=== PATIENT | male | born 1955 ===

== ENCOUNTER 2018-05-29 08:54 | Inpatient (IN) | payer OTHER ==
[~2018-05-29] VITALS: Ht 172.7 cm; Wt 90.7 kg
[2018-05-29] MEDS ORDERED: AMBIEN10 MG PO (10:16)
[2018-05-29] MEDS ORDERED: ZANTAC300 MG (10:17)
[2018-05-29] MEDS ORDERED: OMNICEF300 MG PO (10:18)
[2018-05-29] MEDS ORDERED: XANAX1 MG PO (10:19)
[2018-05-29] MEDS ORDERED: INDOCIN25 MG PO (10:20)
[2018-05-29 11:34] VITALS: BP 127/74; BMI 30.4
[2018-05-29 12:05] LABS: BASOPHILS 0.1 % (0-2); EOSINOPHILS 0.9 % (0-7); HEMATOCRIT 44.1 % (42.0-54.0); HEMOGLOBIN 15.3 g/dL (13.5-17.5); LYMPHOCYTES 20.7 % (15-50); MCH 33.2 pg (26.0-34.0); MCHC 34.7 g/dL (31.0-37.0); MCV 95.7 fL (80.0-100.0); MEAN PLATELET VOLUME 10.5 fL (7.4-10.4); MONOCYTES 9.3 % (2-11); PLATELET COUNT 171 10x3/uL (130-400); RBC 4.61 10x6/uL (4.20-6.10); RDW 12.4 % (11.5-14.5); WBC 6.8 10x3/uL (4.8-10.8)
[2018-05-29 12:35] LABS: ANION GAP 10.9 mmol/L (8-16); BILIRUBIN - TOTAL 0.68 mg/dL (0.2-1.3); CALCIUM 9.1 mg/dL (8.5-10.1); CARBON DIOXIDE 28.8 mmol/L (21.0-32.0); CHOL - HDL RATIO 4.4 ratio (2.3-4.9); CREATININE - SERUM 1.1 mg/dL (0.6-1.3); POTASSIUM - SERUM 3.7 mmol/L (3.5-5.1); PROTEIN - SERUM 7.6 g/dL (6.4-8.2); THYROID STIMULATING HORMONE 1.34 uIU/mL (0.36-3.74)
[2018-05-29 19:31] VITALS: BP 114/81
[2018-05-30 06:16] LABS: VITAMIN D 25 HYDROXY 22.7 ng/mL (30.0-100.0)
[2018-05-30 07:38] LABS: RAPID PLASMA REAGIN Non Reactive (Non Reactive)
[2018-05-30 08:22] LABS: FOLATE (FOLIC ACID) - SERUM 17.1 ng/mL (>3.0)
[2018-05-30 11:38] VITALS: BP 122/84
[2018-05-30 13:07] VITALS: Ht 172.7 cm; Wt 90.7 kg
[2018-05-30 14:26] LABS: APPEARANCE CLEAR (CLEAR); BILIRUBIN NEGATIVE (NEGATIVE); COLOR YELLOW (YELLOW); GLUCOSE NEGATIVE (NEGATIVE); KETONE NEGATIVE (NEGATIVE); NITRITE NEGATIVE (NEGATIVE); PROTEIN NEGATIVE (NEGATIVE); SPECIFIC GRAVITY 1.015 (1.005-1.020); UROBILINOGEN NORMAL (NORMAL); WHITE CELLS - URINE RARE /hpf (0-5)
[2018-05-30 14:27] LABS: BACTERIA FEW /hpf (NONE SEEN); EPITHELIAL CELLS 0-5 /hpf (0-5); MUCUS <1+ /lpf (NONE SEEN); RED CELLS - URINE 0-5 /hpf (0-5)
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
[2018-05-30 20:48] VITALS: BP 135/81
[2018-05-31 10:01] VITALS: BP 143/82
--- NOTE | 2018-05-31 14:42 | PN ---
PATIENT:HOLLY GU MEDICAL RECORD: [id number] LOCATION:KERI Uribe113 ADMISSION DATE: 05/29/18 PROGRESS NOTE DATE OF SERVICE: 05/30/2018 SUBJECTIVE: The patient's case was discussed with staff. He has no new complaint. OBJECTIVE: The patient yesterday told me that he did not drink, but when I went and reviewed the chart, it seems that he has told the nursing staff at the time of admission that he drinks 18-pack of beer a week. When asked if he drinks today, he says he drinks an 18-pack of beer a week. He also goes on to say that means that some days he does not drink at all and that other days, he will drink a 6 pack or two. 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 He had some pretty significant confusion last night. He actually required some p.r.n. Haldol and Ativan because of some confused and agitated behavior. He has no recollection of this. He cannot remember where his room is and he has written the room number in large black letters on the knee of his pants. When asked what his room is, he looks and reads the number and in less than a minute later when I asked him what room he is in and not to down at his pants leg, he cannot remember it. He also today is telling me that the year is 2018 that the month is June. Clearly, this man has evidence of a dementing illness that is not readily observed. I think he has been drinking more than we realized and I have concerns about him going home alone. At this point, he does have 2 sons who live here in town, I am not sure how involved they are willing to be with him, but I am going to discuss this with the treatment team. I am also going to observe him for DT prophylaxis and will make sure that he has both thiamine and folate are ordered. His vital signs so far not have indicated any issues, but I certainly think they bear a watching. TRANSINT:[id number] Voice Confirmation ID: [id number] DOCUMENT ID: [id number] KAITLIN POWELL MD at 1442 CC: [id number] DICTATION DATE: 05/30/18 1643 ANIMAL SCIENTIST: 05/30/18 2250 ADM IN [facility] [address] [place] [id number]
[2018-05-31 19:56] VITALS: BP 140/80
[2018-06-01 08:00] VITALS: BP 111/77
--- NOTE | 2018-06-01 15:20 | PN ---
PATIENT:HOLLY GU MEDICAL RECORD: [id number] LOCATION:KERI Uribe113 ADMISSION DATE: 05/29/18 PROGRESS NOTE DATE OF SERVICE: 05/31/2018 SUBJECTIVE: The patient's case was discussed with staff. He has no new complaint. OBJECTIVE: The patient denies intent to harm himself or others. He tolerates his medicines well. Eye contact is fair. He has significant short-term memory impairment. ASSESSMENT: No change in diagnoses. PLAN: The patient is going to be started on Aricept at a dose of 5 mg at bedtime. Aricept is being used to treat his underlying dementia. TRANSINT:[id number] Voice Confirmation ID: [id number] DOCUMENT ID: [id number] KAITLIN POWELL MD at 1520 CC: [id number] DICTATION DATE: 05/31/18 1528 SENIOR SOFTWARE ENGINEERING MANAGER: 05/31/18 2109 ADM IN [facility] [address] [place] [address]
[2018-06-01 20:54] VITALS: BP 123/77
[2018-06-02 09:17] VITALS: BP 123/83
--- NOTE | 2018-06-02 10:04 | PN ---
PATIENT:HOLLY GU MEDICAL RECORD: [id number] LOCATION:Jojo[facility]LENE[facility]fea Uribe113 ADMISSION DATE: 05/29/18 PROGRESS NOTE DATE OF SERVICE: 06/01/2018 SUBJECTIVE: The patient's case was discussed with staff. He has no new complaint. OBJECTIVE: The patient is in good behavioral control with limited insight about his condition. He generally tolerates his medicines well. ASSESSMENT: No change in diagnoses. PLAN: Brief supportive and educational interventions were made. Long-term prognosis is guarded. TRANSINT:[id number] Voice Confirmation ID: [id number] DOCUMENT ID: [id number] KAITLIN POWELL MD at 1004 CC: [id number] DICTATION DATE: 06/01/18 1542 MOTHER REPAIRER: 06/01/18 1640 ADM IN [place] [id number] [place] [id number]
[2018-06-02 20:00] VITALS: BP 124/82
[2018-06-02 21:32] VITALS: BP 124/82
[2018-06-03 08:59] VITALS: BP 121/83
--- NOTE | 2018-06-03 13:57 | PN ---
PATIENT:HOLLY GU MEDICAL RECORD: [id number] LOCATION:KERI PricePatricia113 ADMISSION DATE: 05/29/18 PROGRESS NOTE DATE OF SERVICE: 06/02/2018 SUBJECTIVE: The patient's case was discussed with staff. He has no new complaint. OBJECTIVE: The patient denies intent to harm himself or others. He tolerates his medicines well. ASSESSMENT: No change in diagnoses. PLAN: Brief supportive and educational interventions were made. Long-term prognosis is guarded. TRANSINT:[id number] Voice Confirmation ID: [id number] DOCUMENT ID: [id number] KAITLIN POWELL MD at 1357 CC: [id number] DICTATION DATE: 06/02/18 1109 CABLE DRILLER: 06/02/18 1228 ADM IN [place] [address] [place] [id number]
[2018-06-03 18:17] VITALS: BP 125/82
[2018-06-04 08:04] VITALS: BP 116/73
--- NOTE | 2018-06-04 16:20 | PN ---
PATIENT:HOLLY GU MEDICAL RECORD: [id number] LOCATION:KERI Uribe113 ADMISSION DATE: 05/29/18 PROGRESS NOTE DATE OF SERVICE: 06/03/2018 SUBJECTIVE: The patient's case was discussed with staff. He has no new complaint. OBJECTIVE: The patient is minimizing the confusion he has had. He is not aggressive or out of control. He has limited insight about his condition and no evidence of alcohol withdrawal. ASSESSMENT: No change in diagnoses. PLAN: The patient is very much wanting to be discharged. I am not happy about the situation at home with the lack of supervision, but I am in a situation where, as long as the guns have been removed, I think all I can do is release him and make a report to adult protective services. TRANSINT:[id number] Voice Confirmation ID: [id number] DOCUMENT ID: [id number] KAITLIN POWELL MD at 1620 CC: [id number] DICTATION DATE: 06/03/18 1416 HEAD ANIMAL KEEPER: 06/03/18 1624 ADM IN [facility] [address] [place] [address]
[2018-06-04] MEDS ORDERED: Aricept PO (17:04)
[2018-06-04 20:40] VITALS: BP 110/71
[2018-06-05 08:00] VITALS: BP 129/92
--- NOTE | 2018-06-05 15:55 | PN ---
PATIENT:HOLLY GU MEDICAL RECORD: [id number] LOCATION:KERI Uribe113 ADMISSION DATE: 05/29/18 PROGRESS NOTE DATE OF SERVICE: 06/04/2018 SUBJECTIVE: The patient's case was discussed with staff. He has no new complaint. OBJECTIVE: The patient denies intent to harm himself or others. He is tolerating his medicines well. Eye contact is poor. ASSESSMENT: No change in diagnoses. PLAN: Current medicines and therapies have been reviewed and will be maintained. Long-term prognosis is guarded. Brief supportive and educational interventions were made. I am going to increase his Aricept slightly; and based on the fact that the guns have been removed from the house, he has a close friend who is going to watch him and assist him, I am going to let him go home tomorrow. I am not comfortable with this decision, but adult protective services will not take custody of him while he is here in a safe environment. We are going to ask for a home check and hopefully they will take custody of him since I do not think the amount of supervision his friend is going to provide will be adequate. He cannot be committed under current statute since he is demented and that is his only mental health diagnosis and the [place] statue specifically includes mental health commitments for reasons of dementia. This is unfortunate and Mr. Gu wants to go home. He has almost no insight about his level of impairment and does not think he is having any significant trouble. His friend, Fernando, thinks differently and is going to help. Neither of the patient's sons, who both live locally, have any interest in assisting him. TRANSINT:[id number] Voice Confirmation ID: [id number] DOCUMENT ID: [id number] KAITLIN POWELL MD at 1555 CC: [id number] DICTATION DATE: 06/04/18 170 EPIC MANAGER: 06/04/18 1804 DIS IN 06/05/18 [place] [id number] [place] [address]
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
== END 2018-06-05 11:00 | disposition home or self-care (01) | DRG 57 ==
LOC: D.PSYCH 08:54
PROVIDERS: ADMIT Psychiatry & Neurology Psychiatry
DX: G30.1 Alzheimer's disease with late onset (principal); F02.81 Dementia in other diseases classified elsewhere, unspecified severity, with behavioral disturbance; F05 Delirium due to known physiological condition; M10.9 Gout, unspecified; F41.9 Anxiety disorder, unspecified; F15.90 Other stimulant use, unspecified, uncomplicated; Z72.89 Other problems related to lifestyle; E55.9 Vitamin D deficiency, unspecified

== ENCOUNTER 2019-12-12 20:13 | Inpatient (IN) | payer MEDICARE ==
[~2019-12-12 20:13] MED LIST: AMBIEN10 MG PO; Aricept PO; INDOCIN25 MG PO; OMNICEF300 MG PO; XANAX1 MG PO; ZANTAC300 MG
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
[2019-12-12 22:25] VITALS: BP 127/76
[2019-12-12 22:46] LABS: BILIRUBIN NEGATIVE (NEGATIVE); GLUCOSE NEGATIVE (NEGATIVE); KETONE NEGATIVE (NEGATIVE); NITRITE NEGATIVE (NEGATIVE); RED CELLS - URINE 0-5 /hpf (0-5); UROBILINOGEN NORMAL (NORMAL); WHITE CELLS - URINE NSEEN /hpf (NEGATIVE)
[2019-12-12 22:47] LABS: BACTERIA FEW /hpf (NEGATIVE); EPITHELIAL CELLS NSEEN /hpf (0-5)
[2019-12-13 06:48] LABS: BASOPHILS 0.4 % (0-2); EOSINOPHILS 4.3 % (0-7); HEMATOCRIT 44.4 % (42.0-54.0); HEMOGLOBIN 14.4 g/dL (13.5-17.5); IMMATURE GRANULOCYTES 0.2 % (0-5); LYMPHOCYTES 25.5 % (15-50); MCH 31.2 pg (26.0-34.0); MCHC 32.4 g/dL (31.0-37.0); MCV 96.3 fL (80.0-100.0); MEAN PLATELET VOLUME 10.3 fL (7.4-10.4); MONOCYTES 7.9 % (2-11); NEUTROPHILS 61.7 % (40-80); RBC 4.61 10x6/uL (4.20-6.10); RDW 12.1 % (11.5-14.5); WBC 4.7 10x3/uL (4.8-10.8)
[2019-12-13 06:51] LABS: PLATELET COUNT 248 10x3/uL (130-400)
[2019-12-13 07:25] LABS: ALBUMIN 3.7 g/dL (3.4-5.0); ALKALINE PHOSPHATASE 69 U/L (30-120); ALT (SGPT) 56 U/L (10-68); BILIRUBIN - TOTAL 0.67 mg/dL (0.2-1.3); CALC OSMOLALITY 282 mosm/kg (275-300); CALCIUM 9.4 mg/dL (8.5-10.1); CARBON DIOXIDE 30.9 mmol/L (21.0-32.0); CHLORIDE - SERUM 106 mmol/L (98-107); CHOL - HDL RATIO 6.7 ratio (2.3-4.9); CHOLESTEROL, TOTAL 201 mg/dL (0-200); CREATININE - SERUM 0.9 mg/dL (0.6-1.3); GLUCOSE 91 mg/dL (74-106); HDL CHOLESTEROL 30 mg/dL (32-96); LDL CHOLESTEROL 148 mg/dL (0-100); LDL-HDL RATIO 4.9 ratio (1.5-3.5); POTASSIUM - SERUM 4.1 mmol/L (3.5-5.1); PROTEIN - SERUM 7.5 g/dL (6.4-8.2); SODIUM 142 mmol/L (136-145); THYROID STIMULATING HORMONE 1.92 uIU/mL (0.36-3.74); TRIGLYCERIDE 117 mg/dL (30-200); UREA NITROGEN 13 mg/dL (7-18); eGFR NON AFRICAN AMERICAN 90 mL/min (90-120)
--- NOTE | 2019-12-13 07:25 | NUR ---
Spoke to the patient and he said he knows he is somewhere here in [place], he knows he is in the hospital, he says he is here to get his thinking straight, he says he knows he was not thinking right and he is realizing a lot of stuff that is more in the real world now. He is pleasant and calm, but he does have some anxiety. He ambulates independently. Provide prescribed meds. Monitor his behavior. Continue POC.
[2019-12-13 09:22] VITALS: BP 111/77
--- NOTE | 2019-12-13 12:31 | NUR ---
The patient is bizarre in behavior. He is showing some anxiety. His eyes get big and he has asked to walk around. He is watchful. He is not completely sure why he is here.
[2019-12-13 14:47] VITALS: Wt 87.7 kg
--- NOTE | 2019-12-13 17:44 | NUR ---
PT WANTED TO GET SOME CARDS OUT OF HIS WALLET. HE WANTED HIS SENIOR CONNECTIONS CARD TO CALL [facility]. NURSE WROTE NUMBER DOWN SO THAT MONDAY THE NUMBER COULD BE CALLED.
[2019-12-13 20:10] VITALS: BP 111/72
--- NOTE | 2019-12-14 00:49 | NUR ---
B) Patient is alert and oriented to self, pleasnt and cooperative with staff, very confused and unaware of situation, I) Administered scheduled medications as ordered, monitored for safety R) Mediation compliant, follows instructions, P) Continue plan of care.
[2019-12-14 06:10] LABS: RAPID PLASMA REAGIN Non Reactive (Non Reactive)
[2019-12-14 08:27] VITALS: BP 102/76
--- NOTE | 2019-12-14 10:34 | NUR ---
The patient is confused and paranoid. He doesn't know why he is here. He doesn't know where he is located. He is watchful and forgetful. He has asked to go up to his room to go to bed. Explained to him that it is morning and it is not bedtime. He has not been aggressive, denies SI, and HI. Provide prescribed meds. The patient is compliant with meds. He ambulates independently. Continue POC.
--- NOTE | 2019-12-14 19:06 | PN ---
PATIENT:HOLLY GU MEDICAL RECORD: [id number] LOCATION:KERI Uribe112 ADMISSION DATE: 12/12/19 PROGRESS NOTE DATE OF SERVICE: 12/14/2019 SUBJECTIVE: The patient's case was discussed with staff. He has no new complaint. OBJECTIVE: The patient is delusional. He has been paranoid with the staff, believing that they are trying to poison him. ASSESSMENT: Dementia. PLAN: The is going to be treated with a low dose of Risperdal for his psychotic symptoms. He will be monitored for clinical changes associated with its use. His long-term prognosis is guarded. TRANSINT:[id number] Voice Confirmation ID: [id number] DOCUMENT ID: [id number] KAITLIN POWELL MD at 1906 CC: [id number] DICTATION DATE: 12/14/19 1238 RN BARIATRIC: 12/14/19 1304 ADM IN [facility] [address] [place] [address]
[2019-12-14 20:00] VITALS: BP 120/84
--- NOTE | 2019-12-14 20:41 | NUR ---
B.) PT IS ALERT AND ORIENTED TO SELF, PLACE AND TIME. HE HAS POOR INSIGHT INTO HIS SITUATION AT TIMES. HE IS CALM AND COOPERATIVE WITH STAFF. HE IS ABLE TO AMBULATE WITHOUT ASSIST. HE IS ABLE TO VOICE NEEDS AND WANTS. I.) PROVIDED PM MEDICATIONS PRESCRIBED. REDIRECT NEEDED. R.) COMPLIANT WITH ALL MEDICATIONS. EASY TO REDIRECT. P.) WILL CONTINUE TO MONITOR.
[2019-12-15 10:50] VITALS: BP 110/61
--- NOTE | 2019-12-15 12:54 | NUR ---
The patient is confused, he is watchful, he has poor insight into his situation. He repeats the same question as he forgets in a few minutes. He has not shown any aggression, no SI, or HI. He has no idea how he got here or why he is here. He asked "Where are my shoes?" He showed me his flip flops and the soles are mostly worn off. Explained to him that he only came in with the flip flops. He said "Oh" Offered him some nonskid socks so that he can wear them instead of the worn flip flops. First he accepted them then he tried to give them back he was confused. He said "Well, I can't wear them with my flip flops because of the toes." Explained to him that he could take the flip flops off and wear the socks because they may be more comfortable. He continues to wear his flip flops. Provide prescribed meds. The patient is compliant with meds. Continue POC.
--- NOTE | 2019-12-15 20:18 | NUR ---
RECEIVED IN DAYROOM. SITTING IN A CHAIR WITH PEERS AT HIS SIDE. CALM AND COOPERATIVE WITH CARE AND ASSESSMENT. NO SIGNS OF HALLUCINATIONS. REDIRECT AND REORIENT NEEDED. CONTINUES TO SIT CALMLY IN DAYROOM. CONTINUE PLAN OF CARE.
[2019-12-15 20:37] VITALS: BP 130/85
[2019-12-16 09:21] VITALS: BP 122/76
--- NOTE | 2019-12-16 10:30 | NUR ---
PT STATED REMORSE FOR HIS BEHAVIOR THAT GOT HIM ADMITTED TO THE UNIT. SOME CONFUSION NOTED BUT PT WAS EASILY REDIRECTION. MED COMPLIANT. NO HALLUCINATIONS NOTED. DENIES SI. BENITO CONTINUE TO MONITOR AND CONTINUE WITH PLAN OF CARE.
--- NOTE | 2019-12-16 12:16 | NUR ---
Nutrition Follow-up: Diet: Regular PO intake: 100% x all meals Last BM: 12/14/19. Wt: 189.6# (12/15/19); Admit Wt: 189# (12/13/19) Meds and labs reviewed. Recommend continue current diet. RD following.
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
--- NOTE | 2019-12-16 12:27 | PN ---
PATIENT:HOLLY GU MEDICAL RECORD: [id number] LOCATION:[facility] ADMISSION DATE: 12/12/19 PROGRESS NOTE DATE OF SERVICE: 12/15/2019 SUBJECTIVE: The patient's case was discussed with staff. He has no new complaint. OBJECTIVE: The patient is in good behavioral control with poor insight about his condition. He tolerates his medicines well. ASSESSMENT: Dementia. PLAN: The patient is less paranoid today. I think on the whole, he is better. The main problem at this point is discharge. He is wanting to go back to his house, this is inappropriate in my view. TRANSINT:[id number] Voice Confirmation ID: [id number] DOCUMENT ID: [id number] KAITLIN POWELL MD at 1227 CC: [id number] DICTATION DATE: 12/15/19 1405 FORM BUILDER: 12/16/19 0150 ADM IN [facility] [address] [place] [address]
[2019-12-16 20:05] VITALS: BP 133/92
--- NOTE | 2019-12-16 20:07 | NUR ---
PATIENT BECOMING INCREASINGLY AGITATED ABOUT GOING HOME, PACING AND REQUESTING HIS DOCTOR. HALDOL 2 MG PO GIVEN FOR ANXIETY.
--- NOTE | 2019-12-16 21:00 | NUR ---
MEDICATION HAS CALMED PATIENT SOME AT THIS TIME.
--- NOTE | 2019-12-17 00:05 | NUR ---
PATIENT WALKED OUT OF ROOM TO NURSES DESK AND REQUESTED SOMETHING TO HELP HIM SLEEP. HALDOL 2 MG PO AND ATIVAN 0.5 MG PO GIVEN PER REQUEST FOR ANXIETY.
--- NOTE | 2019-12-17 02:38 | NUR ---
B) Patient is alert and oriented to person, restless at times, pacing and wanting to go home, I) Administered scheduled medications as ordered, PRN Haldol 2 mg PO given with HS meds for anxiety, followe d by PRN Haldol 2 mg PO qand Ativan 0.5 mg PO given at 1 AM for anxiety due to anxiety and pacing the hallways R) Mediation compliant, patient still not sleeping, P) Continue plan of care.
--- NOTE | 2019-12-17 08:21 | PN ---
PATIENT:HOLLY GU MEDICAL RECORD: [id number] LOCATION:[facility] ADMISSION DATE: 12/12/19 PROGRESS NOTE DATE OF SERVICE: 12/16/2019 SUBJECTIVE: The patient's case was discussed with staff. He has no new complaint. OBJECTIVE: The patient continues to have paranoid and delusional thoughts. He is accusatory towards staff. ASSESSMENT: Dementia. PLAN: I am going to increase the dose of the Risperdal to a 4 mg at bedtime. He will be monitored for clinical changes associated with its effect. His long-term prognosis is guarded. TRANSINT:[id number] Voice Confirmation ID: [id number] DOCUMENT ID: [id number] KAITLIN POWELL MD at 0821 CC: [id number] DICTATION DATE: 12/16/19 1642 EXPERIMENTAL ROCKET SLED MECHANIC: 12/16/19 2333 ADM IN [place] [id number] [place] [id number]
[2019-12-17 09:53] VITALS: BP 105/60
--- NOTE | 2019-12-17 10:01 | NUR ---
REC'D PT IN DAYROOM SOCIALIZING WITH PEERS. CALM AND COOPERATIVE WITH ASSESSMENT. PT CAN BECOME EASILY AGITATED AT TIMES. HARD TO REDIRECT AT TIMES. PRESCRIBED MEDS PROVIDED ORDERED. MED COMPLIANT. REDIRECT AND REORIENT NEEDED. WILL CPOC.
[2019-12-17 20:28] VITALS: BP 111/66
--- NOTE | 2019-12-17 23:01 | NUR ---
B) Patient is alert and oriented to person, very confused and unaware of surroundings, unable to understand instructions at times, I) Administered scheduled medications as ordered, redirected as needed, R) Mediation compliant, misunderstands almost all instructions P) Continue plan of care.
[2019-12-18 09:16] VITALS: BP 94/68
--- NOTE | 2019-12-18 11:13 | NUR ---
REC'D PT IN DAYROOM WITH PEERS. PT IS ATTENDING GROUP AT THIS TIME. CALM AND COOPERATIVE WITH ASSESSMENT WITH CONFUSION NOTED. PRESCRIBED MEDS PROVIDED ORDERED. MED COMPLIANT. REDIRECT AND REORIENT NEEDED. FALL PRECAUTIONS IN PLACE FOR SAFETY. WILL CPOC.
--- NOTE | 2019-12-18 15:58 | PN ---
PATIENT:HOLLY GU MEDICAL RECORD: [id number] LOCATION:[facility] ADMISSION DATE: 12/12/19 PROGRESS NOTE DATE OF SERVICE: 12/17/2019 SUBJECTIVE: The patient's case was discussed with staff. He has no new complaint. OBJECTIVE: The patient was agitated last night and did require some p.r.n. medication. He is partially oriented. He has pretty limited insight about his situation. I am going to go ahead and discontinue his Risperdal and we will start him on a scheduled dose of Geodon for his disruptive behaviors. He cannot live alone. He has no family, and long-term placement seems to be the least restrictive environment available to him. TRANSINT:[id number] Voice Confirmation ID: [id number] DOCUMENT ID: [id number] KAITLIN POWELL MD at 1558 CC: [id number] DICTATION DATE: 12/17/19 1540 ORE SMELTER: 12/18/19 0012 ADM IN [place] [id number] [place] [id number]
--- NOTE | 2019-12-18 16:26 | NUR ---
Nutrition Follow-up: Diet: Regular PO intake: ~97% average x last 9 meals Last BM: 12/14/19. Wt: 189.6# (12/15/19); Admit Wt: 189# (12/13/19) Meds and labs reviewed. Recommend continue current diet. RD following.
[2019-12-18 20:01] VITALS: BP 105/76
--- NOTE | 2019-12-19 00:01 | NUR ---
B) Patient is alert and oriented to person, very confused and unaware of surroundings, I) Administered scheduled medications as ordered, redirected and reoriented as needed, R) Medication compliant, sleeping quietly in bed now, P) Continue plan of care.
[2019-12-19 09:25] VITALS: BP 123/80
--- NOTE | 2019-12-19 10:40 | NUR ---
The patient is awake, but he is bizarre and delusional. He said "Oh, I was with the compound coating machine offbearer yesterday and he took my armband off, I don't know why" then he said "I already had the orange one." I am unsure what he is talking about, but he laughed and said "Ok, whatever." Provide prescribed meds. The patient is compliant with meds, although, he has refused to use his incentive spirometer this am. He believes they are dirty. The patient has poor insight into his situation. Continue POC.
--- NOTE | 2019-12-19 12:01 | PN ---
PATIENT:HOLLY GU MEDICAL RECORD: [id number] LOCATION:[facility] ADMISSION DATE: 12/12/19 PROGRESS NOTE DATE OF SERVICE: 12/18/2019 SUBJECTIVE: The patient's case was discussed with staff. He has no new complaint. OBJECTIVE: The patient is cognitively impaired, but cooperative. He has not made any more delusional statements and he is tolerating his current dose of Geodon well and I will consider reducing the dose if this level of improvement continues. ASSESSMENT: Dementia. PLAN: The patient has no family or support system that can assist him. He needs 82-pcha-z-day supervision. The least restrictive environment is the halfway. I am going to complete the papers for adult protective services and start that process. TRANSINT:[id number] Voice Confirmation ID: [id number] DOCUMENT ID: [id number] KAITLIN POWELL MD at 1201 CC: [id number] DICTATION DATE: 12/18/19 1613 ESTIMATOR AND DRAFTER SUPERVISOR: 12/19/19 0406 ADM IN [place] [id number] [place] [address]
[2019-12-19 21:22] VITALS: BP 94/62
--- NOTE | 2019-12-19 22:32 | NUR ---
B) Patient is alert and oriented to person, patient thinks he has to meet with a boiler plant worker and needs to find his car keys I) Administered scheduled medications as ordered, monitored for safety R) Mediation coompliant, resting quietly now P) Continue plan of care.
--- NOTE | 2019-12-20 08:10 | NUR ---
The patient is calm and pleasant he has poor insight into his situation. He does not know why he is here, he doesn't know place or time, he talks, but he says things that do not make sense. He ambulates independently. He has not shown any aggression today. Provide prescribed meds. Monitor his mood and behavior. Continue POC.
[2019-12-20 09:07] VITALS: BP 103/73
--- NOTE | 2019-12-20 13:20 | PN ---
PATIENT:HOLLY GU MEDICAL RECORD: [id number] LOCATION:[facility] ADMISSION DATE: 12/12/19 PROGRESS NOTE DATE OF SERVICE: 12/19/2019 SUBJECTIVE: The patient's case was discussed with staff. He has no new complaint. OBJECTIVE: The patient is in good behavioral control, poor insight about his situation. He is tolerating his medicines well. ASSESSMENT: Dementia. PLAN: The patient is in need of 70-ypvs-u-day supervision. Long-term prognosis is guarded. TRANSINT:[id number] Voice Confirmation ID: [id number] DOCUMENT ID: [id number] KAITLIN POWELL MD at 1320 CC: [id number] DICTATION DATE: 12/19/19 1619 PSYCHOLOGIST CLINICAL: 12/19/19 [address] [facility] [address] [place] [address]
--- NOTE | 2019-12-20 16:50 | NUR ---
PT IS VERY CONFUSED ABD ANXIOUS. STAFF ATTEMPTED TO REDIRECT PT BEHAVIORS. PT STATED HE WAS ANXIOUS AND NERVOUS. ATIVAN 0.5 MG PO FOR ANXIOUS BEHAVIOR.
--- NOTE | 2019-12-20 20:44 | NUR ---
RECEIVED PATIENT IN DAYROOM, SOCIALIZES WELL WITH OTHERS, CONFUSED, HE LOOKS FOR "HIS ANISA" AT TIMES AND THINKS THAT HIS HOUSE IS GOING TO BE STOLEN FROM HIM. HE IS PLEASANT, COMPLIANT WITH MEDS, MAKES ALL NEEDS KNOWN.
[2019-12-20 21:05] VITALS: BP 133/88
--- NOTE | 2019-12-21 12:44 | NUR ---
IS ORIENTED TO SELF.COMPLIANT WITH STAFF AND MEDS.VERY POOR SHORT TERM MEMORY,WILL ASK THE SAME QUESTIONS OVER AND OVER.DOES NOT REMEMBER HE HAS A ROOM HERE.NO BEHAVIORS OBSERVED.WILL CONTINUE WITH CURRENT PLAN OF CARE,MONITOR FOR CHANGES AND SAFETY.
[2019-12-21 14:20] VITALS: BP 104/68
--- NOTE | 2019-12-22 01:49 | NUR ---
RECEIVED PATIENT IN DINING AREA TALKING WITH TWO OTHER RESIDENTS, HE IS PLEASANT BUT CONFUSED, HE WAS ASKING FOR HIS DIFFERENT SHOES SO HE COULD GO TO WORK IN THE MORNING. EXPLAINED TO HIM THAT HE WAS AT A HOSPITAL AND DID NOT HAVE TO GO TO WORK IN THE MORNING... STILL CONFUSED. WILL MONITOR
[2019-12-22 08:53] VITALS: BP 106/77
--- NOTE | 2019-12-22 16:37 | NUR ---
PT IS SITTING IN DAYROOM WITH PEERS. AWAKE AND ALERT TO PERSON ONLY. CALM AND COOPERATIVE WITH ASSESSMENT. PRESCRIBED MEDS PROVIDED ORDERED. MED COMPLIANT. PT IS VERY CONFUSED AND HAS LITTLE INSIGHT INTO HIS SITUATION AT THIS TIME. REDIRECT AND REORIENT NEEDED. WILL CPOC.
[2019-12-22 19:36] VITALS: BP 122/72
--- NOTE | 2019-12-22 21:12 | NUR ---
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 HE CAN NOT COMPREHEND TO WHY HE IS HERE, COMPLIANT WITH MEDS. WILL FOLLOW POC
[2019-12-23 09:08] VITALS: BP 143/70
--- NOTE | 2019-12-23 17:22 | NUR ---
PT AT DINING ROOM TABLE WITH PEERS. ASSESSMENT COMPLETE. PRESCRIBED MEDS PROVIDED ORDERED. MED COMPLIANT. REDIRECT AND REORIENT NEEDED. WILL CPOC.
--- NOTE | 2019-12-23 19:45 | NUR ---
RECEIVED IN DINING ROOM AREA. SITTING IN A CHAIR WITH PEERS AT HIS SIDE. SOCIAL. CALM AND COOPERATIVE WITH CARE AND ASSESSMENT. NO SIGNS OF HALLUCINATIONS. REDIRECT AND REROEINT NEEDED. CONTINUES TO SIT CALMLY IN DAYROOM. CONTINUE PLAN OF CARE.
[2019-12-23 20:10] VITALS: BP 100/66
--- NOTE | 2019-12-24 08:22 | PN ---
PATIENT:HOLLY GU MEDICAL RECORD: [id number] LOCATION:[facility] ADMISSION DATE: 12/12/19 PROGRESS NOTE DATE OF SERVICE: 12/23/2019 SUBJECTIVE: The patient's case was discussed with staff. He has no new complaint. OBJECTIVE: The patient denies intent to harm himself or others. He is tolerating his medicines well. His long-term prognosis is guarded. I anticipate he can be transitioned out of the hospital soon. The issue is going to be placement and that is going to be contingent upon what the adult protective services office decides to do. It is my recommendation that he needs 11-pztp-y-day supervision. Given the overall circumstances, it looks as though the least restrictive environment is going to be a assisted and again with the overall circumstances, it looks as though he is not going to be willing to go to the assisted unless somebody, a family member or the state take custody of him through guardianship. TRANSINT:[id number] Voice Confirmation ID: [id number] DOCUMENT ID: [id number] KAITLIN POWELL MD at 0822 CC: [id number] DICTATION DATE: 12/23/19 1736 SOFT DRINK POWDER MIXER: 12/24/19 0137 ADM IN [facility] [address] [place] [address]
[2019-12-24 10:12] VITALS: BP 132/84
--- NOTE | 2019-12-24 16:38 | NUR ---
PT SITTING IN CHAIR. PT IS CONFUSED AND ALERT TO SELF ONLY. PT IS ALERT TO SELF ONLY. REDIRECT AND REORIENT NEEDED. PT IS COMPLIANT WITH MEDS, VITALS AND ASSESSMENT. CAN MAKE NEEDS KNOWN. AMBULATES. MODERATE ASSISTANCE WITH ADLS. NO BEHAVIORS NOTED. WILL CONT PLAN OF CARE.
[2019-12-24 19:52] VITALS: BP 118/80
--- NOTE | 2019-12-24 19:58 | NUR ---
RECEIVED IN DAYROOM. SITTING CALMLY IN A CHAIR WITH PEERS AT HIS SIDE. CALM AND COOPERATIVE WITH CARE AND ASSESSMENT. NO SIGNS OF HALLUCINATIONS. REDIRECT AND REOREINT NEEDED. CONTINUES TO SIT CALMLY IN DAYROOM. CONTINUE PLAN OF CARE.
[2019-12-25 08:36] VITALS: BP 109/78
--- NOTE | 2019-12-25 09:07 | PN ---
PATIENT:HOLLY GU MEDICAL RECORD: [id number] LOCATION:[facility] ADMISSION DATE: 12/12/19 PROGRESS NOTE DATE OF SERVICE: 12/24/2019 SUBJECTIVE: The patient's case was discussed with staff. He has no new complaint. OBJECTIVE: The patient denies intent to harm himself or others. He is tolerating his medicines well. He has poor insight about his situation. ASSESSMENT: Dementia. PLAN: Adult protective services is going to give her some guidance on which direction we need to go. It is my recommendation that the patient have 05-jhzs-w-day supervision. Hopefully, with adult protective services talking to the sons we can find something that will meet that need that is short of alf placement. TRANSINT:[id number] Voice Confirmation ID: [id number] DOCUMENT ID: [id number] KAITLIN POWELL MD at 0907 CC: [id number] DICTATION DATE: 12/24/19 1632 MEN'S GOLF COACH: 12/25/19 0117 ADM IN [place] [id number] [place] [id number]
--- NOTE | 2019-12-25 10:44 | NUR ---
REC'D PT IN DAYROOM WITH PEERS SOCIALIZING. AWAKE AND ALERT TO PERSON ONLY. CALM AMD COOPERATIVE WITH ASSESSMENT. PRESCRIBED MEDS PROVIDED ORDERED. MED COMPLIANT. WILL CPOC.
--- NOTE | 2019-12-25 15:02 | NUR ---
Nutrition Follow-up: Diet: Regular PO intake: ~94% average x last 9 meals Last BM: 12/21/19. Wt: 193# (12/22/19); Admit Wt: 189# (12/13/19) Meds reviewed. No new labs. Recommend continue current diet. RD Following.
[2019-12-25 20:27] VITALS: BP 124/83
--- NOTE | 2019-12-26 02:00 | NUR ---
B) PATIENT IS ORIENTED TO SELF ONLY AND VERY CONFUSED, CALM AND COOPERATIVE. I) ADMINISTERED SCHEDULED MEDICATIONS ORDERED, REDIRECTED NEEDED AND ASSIST WITH NEEDS. R) MEDICATION COMPLIANT, NOW RESTING QUIETLY IN BED. P) CONTINUE PLAN OF CARE.
[2019-12-26 11:19] VITALS: BP 116/80
--- NOTE | 2019-12-26 13:19 | PN ---
PATIENT:HOLLY GU MEDICAL RECORD: [id number] LOCATION:[facility] ADMISSION DATE: 12/12/19 PROGRESS NOTE DATE OF SERVICE: 12/25/2019 SUBJECTIVE: The patient's case was discussed with staff. He has no new complaint. OBJECTIVE: The patient's son is going to take guardianship of him. The patient is agreeable to this. ASSESSMENT: Dementia. PLAN: The patient will be discharged to the custody of his son as soon as these arrangements can be made. TRANSINT:[id number] Voice Confirmation ID: [id number] DOCUMENT ID: [id number] KAITLIN POWELL MD at 1319 CC: [id number] DICTATION DATE: 12/25/[address] CHANGE ROOF BOLTER: 12/25/19 2348 ADM IN [facility] [address] [place] [address]
--- NOTE | 2019-12-26 16:27 | NUR ---
ORIENTED TO SELF ONLY.VERY CONFUSED.COMPLIANT WITH STAFF AND PEERS.ENJOYES TALKING WITH PEERS.WILL CONTINUE WITH CURRENT PLAN OF CARE,MONITOR FOR CHANGES AND SAFETY.
--- NOTE | 2019-12-26 18:08 | NUR ---
PT SON PICKING FROM UP AT 1300 ON Monday12/26/19. WILL ATTEMPT TO LOCATE PRIMARY CARE DOCTOR AND PHARMACY.
[2019-12-26] MEDS ORDERED: GEODON20 MG PO (18:13)
[2019-12-26] MEDS ORDERED: NAMENDA5 MG PO (18:13)
[2019-12-26] MEDS ORDERED: AKWA TEARS15 ML EACH EYE (18:14)
[2019-12-26 20:09] VITALS: BP 151/92
--- NOTE | 2019-12-26 23:22 | NUR ---
B) Patient is alert and oriented to self, very confused and unaware he is in a hospital I) Administered scheduled medications as ordered, monitored for safety R) Mediation compliant, follows instructions, P) Continue plan of care.
--- NOTE | 2019-12-27 12:45 | NUR ---
Yvrose Galvan RN is readying the patient's paperwork so that he can d/c today with the patient's son, we were able to get a physician name and we will need to ask the patient's son to get a pharmacy. The patient is confused and he has poor insight into his situation and poor short term memory recall. He ambulates independently, he has not shown any hallucinations today. Provide prescribed meds. The patient is compliant with meds. Continue POC.
--- NOTE | 2019-12-27 12:57 | PN ---
PATIENT:HOLLY GU MEDICAL RECORD: [id number] LOCATION:[facility] ADMISSION DATE: 12/12/19 PROGRESS NOTE DATE OF SERVICE: 12/26/2019 SUBJECTIVE: The patient's case was discussed with staff. He has no new complaint. OBJECTIVE: The patient is in good behavioral control. He has poor insight about his situation. He is tolerating his medicines well. ASSESSMENT: Dementia. PLAN: Plans are being finalized for him to go home with his son. I am not sure exactly what the son needs to do, but as soon as he is in a position to take care of his father, which with my understanding is the next few days, the patient can be discharged. TRANSINT:[id number] Voice Confirmation ID: [id number] DOCUMENT ID: [id number] KAITLIN POWELL MD at 1257 CC: [id number] DICTATION DATE: 12/26/191711 BUTTON STATION WORKER: 12/27/19 0223 ADM IN [facility] [address] [place] [id number]
--- NOTE | 2019-12-27 13:20 | NUR ---
NURSE EDUCATED SONS ON PTS FOLLOW UP APPT AND THE IMPORTANCE OF KEEPING APPT. NURSE WENT OVER ALL OTHER PAPERWORK WELL. VERBALIZIED UNDERSTANDING. WENT OVER PHARMACY AND IF MEDS WERE NOT THERE TO GIVE FACILITY A CALL. NURSE GAVE DATE OF FOLLOW UP APPT. VERBALIZIED UNDERSTANDING.
--- NOTE | 2019-12-27 14:34 | NUR ---
ALL PT BELONGINGS GIVEN TO PT WELL.
== END 2019-12-27 13:25 | disposition home or self-care (01) | DRG 57 ==
LOC: D.PSYCH 20:13
PROVIDERS: ADMIT Psychiatry & Neurology Psychiatry; ATTEND Psychiatry & Neurology Psychiatry
DX: G30.9 Alzheimer's disease, unspecified (principal); F02.81 Dementia in other diseases classified elsewhere, unspecified severity, with behavioral disturbance; F41.9 Anxiety disorder, unspecified; E78.5 Hyperlipidemia, unspecified; G47.00 Insomnia, unspecified; M10.9 Gout, unspecified; B99.9 Unspecified infectious disease